=== PATIENT | female | born 1965 | race Two or more races ===

== ENCOUNTER 2021-07-04 08:40 | Day surgery (SDC) | payer OTHER ==
[~2021-07-04 08:40] MED LIST: FORTAMET1000 MG PO; LIPITOR40 MG PO; LOSARTAN-HCTZ1 EACH PO; METFORMIN HCL500 MG PO
[2021-07-04] MEDS ORDERED: AZITHROMYCIN500 MG PO (16:29)
== END 2021-07-04 19:35 | disposition home or self-care (01) ==
LOC: CIR.AMB 08:40
PROVIDERS: ATTEND Obstetrics & Gynecology
DX: N84.0 Polyp of corpus uteri (principal); Z20.822 Contact with and (suspected) exposure to COVID-19